=== PATIENT | male | born 1970 | race Two or more races ===

== ENCOUNTER 2024-06-23 22:26 | Inpatient (IN) | payer MEDICAID ==
[~2024-06-23] VITALS: Ht 167.6 cm; Wt 70.3 kg
[2024-06-23] MEDS ORDERED: VANCOMYCIN 1 GM /D5W 250 ML PB IV ONE (23:07)
[2024-06-23] MEDS ORDERED: ACETAMINOPHEN ES 500 MG TABLET ONE (23:07)
[2024-06-23] MEDS ORDERED: PIPERACI/TAZO 3.375GM/D5W 50ML PB IV ONE (23:07)
[2024-06-23] MEDS: ACETAMINOPHEN ES 500 MG TABLET PO ONE (23:21)
[2024-06-23] MEDS ORDERED: LORAZEPAM INJ 2 MG/ML VIAL ONE (23:22)
[2024-06-23] MEDS: PIPERACILLIN /TAZOBACTAM 3.375 G in IV D5W 50 ML IV ONE (23:24)
[2024-06-23] MEDS: IV NS 0.9% 1,000 ML BAG IV ONE (23:24)
[2024-06-23] MEDS: LORAZEPAM INJ 2 MG/ML VIAL IV ONE (23:30)
[2024-06-23 23:31] LABS: BASOPHILS # (AUTO) 0.1 K/uL (0.0-0.2); BASOPHILS % (AUTO) 0.5 % (0.0-2.0); EOSINOPHILS % (AUTO) 0.2 % (0.0-6.0); HEMATOCRIT 35 % (39-51); HEMOGLOBIN 11.9 g/dL (13.5-17.5); LYMPHOCYTES # (AUTO) 1.1 K/uL (0.8-4.8); LYMPHOCYTES % (AUTO) 10.8 % (20.0-44.0); MEAN CORPUSCULAR HEMOGLOBIN 28 PG (26.0-33.0); MEAN CORPUSCULAR HGB CONC 34 g/dl (31.0-36.0); MEAN CORPUSCULAR VOLUME 82 fL (80-96); MONOCYTES # (AUTO) 0.5 K/uL (0.1-1.30); MONOCYTES % (AUTO) 4.6 % (2.0-12.0); NEUTROPHILS # (AUTO) 8.5 K/uL (1.8-8.9); NEUTROPHILS % (AUTO) 83.9 % (43.0-81.0); PLATELET COUNT (AUTO) 238 K/uL (150-450); RED BLOOD CELL COUNT(AUTO) 4.31 MIL/uL (4.5-6.0); WHITE BLOOD COUNT (AUTO) 10.2 K/uL (4.3-11.0)
[2024-06-23 23:36] LABS: APPEARANCE,URINE CLEAR (CLEAR); BILIRUBIN,URINE NEGATIVE (NEGATIVE); BLOOD, URINE NEGATIVE Ery/uL (NEGATIVE); COLOR,URINE YELLOW (YELLOW); KETONES,URINE TRACE mg/dL (NEGATIVE); LEUKOCYTE ESTERASE ,URINE NEGATIVE (NEGATIVE); NITRITE, URINE NEGATIVE (NEGATIVE); PROTEIN,URINE TRACE mg/dl (NEGATIVE); UGLUCOSE NEGATIVE (NEGATIVE); UROBILINOGEN,URINE 0.2 EU/dL (0.2)
[2024-06-23] MEDS: VANCOMYCIN 1 GM in IV D5W 250 ML IV ONE (23:39)
[2024-06-23 23:43] LABS: INR 1.09 (0.91-1.10); PARTIAL THROMBOPLASTIN TIME 23.2 SEC (24.3-34.3); PROTHROMBIN TIME 11.5 SECS (9.2-11.1)
[2024-06-23 23:51] LABS: ADD URINE CULTURE NO; BACTERIA,URINE Few /HPF (None Seen); RBC,URINE 0-2 /HPF (0-2); WBC,URINE 0-2 /HPF (0-3)
[2024-06-23 23:52] LABS: SQUAMOUS EPITHELIAL CELL,UR Moderate /HPF (None Seen)
[2024-06-23 23:53] LABS: ALANINE AMINOTRANSFERASE 21 U/L (12-78); ALBUMIN 4.6 g/dL (3.4-5.0); ALKALINE PHOSPHATASE 84 U/L (46-116); ASPARTATE AMINOTRANSFERASE 18 U/L (15-37); BILIRUBIN,DIRECT 0.2 mg/dL (0.0-0.2); BILIRUBIN,TOTAL 0.6 mg/dL (0.2-1.0); CALCIUM, SERUM 9.6 mg/dL (8.5-10.1); CARBON DIOXIDE 23 mmol/L (21-32); CHLORIDE 97 mmol/L (98-107); CREATININE 1.2 mg/dL (0.6-1.3); GLUCOSE 104 mg/dL (74-106); POTASSIUM 4.7 mmol/L (3.5-5.1); SODIUM SERUM 138 mmol/L (136-145); TOTAL PROTEIN, SERUM 8.4 g/dL (6.4-8.2); UREA NITROGEN, BLOOD 15 mg/dL (7-18)
[2024-06-23 23:54] LABS: MUCUS,URINE Many /LPF (None Seen)
[2024-06-23 23:57] LABS: LACTIC ACID 5.1 mmol/L (0.4-2.0)
[2024-06-24] MEDS: ENOXAPARIN SODIUM 40 MG/0.4 ML DISP.SYRIN SQ SCH (01:30)
[2024-06-24] MEDS ORDERED: ONDANSETRON HCL/PF 4 MG/2 ML VIAL IVP PRN (01:30)
[2024-06-24] MEDS ORDERED: ZOLPIDEM TARTRATE 5 MG TABLET PO PRN (01:30)
[2024-06-24] MEDS ORDERED: MAGNESIUM HYDROXIDE 30 ML UDC PO PRN (01:30)
[2024-06-24] MEDS ORDERED: MAG HYDROX/AL HYDROX/SIMETH 30 ML UDC PO PRN (01:30)
[2024-06-24] MEDS ORDERED: ENOXAPARIN SODIUM 40 MG/0.4 ML DISP.SYRIN SQ ONE (02:43)
[2024-06-24] MEDS: IV NS 0.9% 1,000 ML IV PRN (05:26)
[2024-06-24] MEDS ORDERED: PIPERACI/TAZO 3.375GM/D5W 50ML PB IV ONE (05:39)
[2024-06-24] MEDS: PIPERACILLIN /TAZOBACTAM 3.375 G in IV D5W 50 ML IV SCH (05:42)
[2024-06-24 08:00] VITALS: BP 135/87; TEMP 98.6; O2SAT 97
[2024-06-24] MEDS: ASPIRIN 325 MG TABLET PO SCH (08:30)
[2024-06-24] MEDS: PANTOPRAZOLE 40 MG TABLET.DR PO SCH (08:30)
[2024-06-24] MEDS: Z GUARD REMEDY 4 OZ OINT TP PRN (08:31)
[2024-06-24] MEDS ORDERED: LEVE500T20 PO (08:34)
[2024-06-24] MEDS ORDERED: METO25TA6 PO (08:34)
[2024-06-24] MEDS: VANCOMYCIN 750 MG in IV D5W 250 ML IV ONE (09:27)
[2024-06-24] MEDS: PIPERACILLIN /TAZOBACTAM 3.375 G in IV D5W 100 ML IV SCH ×2 (09:30→17:24)
[2024-06-24 16:00] VITALS: BP 115/82; TEMP 99.5; O2SAT 100
[2024-06-24] MEDS: METOPROLOL TARTRATE 25 MG TABLET PO SCH (17:18)
[2024-06-24] MEDS: LEVETIRACETAM (250 MG) 250 MG TABLET PO SCH (17:18)
[2024-06-24] MEDS: ACETAMINOPHEN 325 MG TABLET PO PRN (17:19)
[2024-06-24 20:00] VITALS: BP 127/71; TEMP 98.6; O2SAT 100
[2024-06-24] MEDS: VANCOMYCIN 1 GM in IV D5W 250ml IV SCH (20:56)
[2024-06-25 07:30] LABS: BASOPHILS % (AUTO) 0.5 % (0.0-2.0); EOSINOPHILS # (AUTO) 0.1 K/uL (0.0-0.7); EOSINOPHILS % (AUTO) 2.6 % (0.0-6.0); HEMATOCRIT 37 % (39-51); HEMOGLOBIN 12.3 g/dL (13.5-17.5); LYMPHOCYTES # (AUTO) 1.2 K/uL (0.8-4.8); MEAN CORPUSCULAR HEMOGLOBIN 27 PG (26.0-33.0); MEAN CORPUSCULAR HGB CONC 33 g/dl (31.0-36.0); MEAN CORPUSCULAR VOLUME 81 fL (80-96); MONOCYTES # (AUTO) 0.5 K/uL (0.1-1.30); MONOCYTES % (AUTO) 9.8 % (2.0-12.0); NEUTROPHILS % (AUTO) 62.1 % (43.0-81.0); PLATELET COUNT (AUTO) 171 K/uL (150-450); RED BLOOD CELL COUNT(AUTO) 4.53 MIL/uL (4.5-6.0); RED CELL DISTRIBUTION WIDTH 17.8 % (11.5-15.0); WHITE BLOOD COUNT (AUTO) 4.9 K/uL (4.3-11.0)
[2024-06-25 08:00] VITALS: BP 138/97; TEMP 97.8; O2SAT 99
[2024-06-25 08:02] LABS: CREATININE 0.9 mg/dL (0.6-1.3); MAGNESIUM 1.9 mg/dL (1.8-2.4); PHOSPHORUS 3.7 mg/dL (2.5-4.9); POTASSIUM 3.7 mmol/L (3.5-5.1)
[2024-06-25 08:16] LABS: THYROID STIMULATING HORMONE 1.12 uIU/mL (0.358-3.74)
[2024-06-25] MEDS: LORAZEPAM 0.5 MG TABLET PO PRN (08:43)
[2024-06-25] MEDS: BACLOFEN (10 MG) 10 MG TABLET PO SCH (12:48)
[2024-06-25] MEDS ORDERED: QUETIAPINE FUMARATE 25 MG TABLET PO PRN (17:00)
[2024-06-25] MEDS: METHOCARBAMOL (500MG) 500 MG TABLET PO SCH (17:10)
[2024-06-25] MEDS: VANCOMYCIN HCL 1.25 GM in IV D5W 250 ML IV SCH (20:12)
[2024-06-25 21:14] VITALS: BP 128/97; TEMP 99
[2024-06-25 23:12] VITALS: BP 128/97; TEMP 99; O2SAT 99
[2024-06-26] MEDS: LORAZEPAM 1 MG TABLET PO PRN (07:35)
[2024-06-26 13:57] LABS: CALCIUM, SERUM 8.4 mg/dL (8.5-10.1); CREATININE 0.7 mg/dL (0.6-1.3); POTASSIUM 3.8 mmol/L (3.5-5.1)
[2024-06-26 14:02] LABS: BASOPHILS % (AUTO) 0.5 % (0.0-2.0); EOSINOPHILS # (AUTO) 0.1 K/uL (0.0-0.7); EOSINOPHILS % (AUTO) 1.5 % (0.0-6.0); HEMATOCRIT 34 % (39-51); HEMOGLOBIN 11.6 g/dL (13.5-17.5); LYMPHOCYTES # (AUTO) 1.3 K/uL (0.8-4.8); LYMPHOCYTES % (AUTO) 22.4 % (20.0-44.0); MEAN CORPUSCULAR HEMOGLOBIN 27 PG (26.0-33.0); MEAN CORPUSCULAR HGB CONC 34 g/dl (31.0-36.0); MEAN CORPUSCULAR VOLUME 81 fL (80-96); MONOCYTES # (AUTO) 0.6 K/uL (0.1-1.30); MONOCYTES % (AUTO) 9.9 % (2.0-12.0); NEUTROPHILS # (AUTO) 3.7 K/uL (1.8-8.9); NEUTROPHILS % (AUTO) 65.7 % (43.0-81.0); PLATELET COUNT (AUTO) 194 K/uL (150-450); RED BLOOD CELL COUNT(AUTO) 4.21 MIL/uL (4.5-6.0); RED CELL DISTRIBUTION WIDTH 17.8 % (11.5-15.0); WHITE BLOOD COUNT (AUTO) 5.6 K/uL (4.3-11.0)
[2024-06-26 14:16] LABS: THYROID STIMULATING HORMONE 0.93 uIU/mL (0.358-3.74)
[2024-06-26] MEDS ORDERED: IV NS 0.9% 250 ML IV ONE (14:48)
[2024-06-26] MEDS ORDERED: CT SWABBABLE VALVE TRANS SET 1 EA INFUS.SET MC ONE (14:48)
[2024-06-26] MEDS ORDERED: IOHEXOL-350 100 ML VIAL IV ONE (14:48)
[2024-06-26 20:00] VITALS: BP 112/75; TEMP 98.4; O2SAT 100
[2024-06-27 06:28] LABS: CALCIUM, SERUM 9.1 mg/dL (8.5-10.1); CREATININE 0.8 mg/dL (0.6-1.3); POTASSIUM 3.7 mmol/L (3.5-5.1)
[2024-06-27 08:00] VITALS: BP 136/67; TEMP 98.2; O2SAT 98
[2024-06-27] MEDS ORDERED: VANCOMYCIN 1 GM in IV D5W 250 ML IV SCH (08:00)
[2024-06-27 08:07] LABS: FOLIC ACID 10.6 ng/mL (>3.0)
[2024-06-27 16:00] VITALS: BP 120/56; TEMP 98.5; O2SAT 97
[2024-06-27] MEDS: AMMONIUM LACTATE 227 GM BOTTLE TP SCH (18:41)
[2024-06-27 20:00] VITALS: BP 136/82; TEMP 98.2; O2SAT 100
[2024-06-27 20:15] VITALS: BP 136/82; TEMP 98.2; O2SAT 100
[2024-06-28 07:53] LABS: CALCIUM, SERUM 9.3 mg/dL (8.5-10.1); CREATININE 0.8 mg/dL (0.6-1.3); POTASSIUM 3.9 mmol/L (3.5-5.1)
[2024-06-28 08:00] VITALS: BP 115/69; TEMP 97.9; O2SAT 98
[2024-06-28] MEDS: POLYVINYL ALCOHOL 15 ML BOTTLE EACHEYE PRN (18:14)
[2024-06-28 20:00] VITALS: BP 119/77; TEMP 98; TEMP 98.1; O2SAT 98
[2024-06-29 07:26] LABS: CALCIUM, SERUM 8.9 mg/dL (8.5-10.1); CREATININE 0.7 mg/dL (0.6-1.3); POTASSIUM 3.5 mmol/L (3.5-5.1)
[2024-06-29 12:02] LABS: CHOLESTEROL 132 mg/dL (<200); HDL CHOLESTEROL 42 mg/dL (40-60); LDL 74 mg/dL (0-99); TRIGLYCERIDES 88 mg/dL (30-150)
[2024-06-29 20:00] VITALS: BP 108/70; TEMP 98.4; O2SAT 98
[2024-06-30 00:10] LABS: VITAMIN B1 THIAMINE,WB 115.9 nmol/L (66.5-200.0)
[2024-06-30 07:14] LABS: CALCIUM, SERUM 9.3 mg/dL (8.5-10.1); CREATININE 0.8 mg/dL (0.6-1.3); POTASSIUM 3.9 mmol/L (3.5-5.1)
[2024-06-30 08:00] VITALS: BP 132/82; TEMP 97.5; O2SAT 100
[2024-06-30 20:00] VITALS: BP 101/68; TEMP 98.1; O2SAT 99
[2024-07-01 07:00] VITALS: BP 112/66; TEMP 98.1; O2SAT 100
[2024-07-01 16:00] VITALS: BP 106/68; TEMP 98.4; O2SAT 98
[2024-07-01 20:00] VITALS: BP 103/71; TEMP 98.1; O2SAT 98
[2024-07-02 07:00] VITALS: BP 109/68; TEMP 97.7; O2SAT 98
[2024-07-02 16:00] VITALS: BP 95/61; TEMP 98.4; O2SAT 98
[2024-07-02 20:00] VITALS: BP 103/61; TEMP 98.5; O2SAT 97
[2024-07-03 00:54] VITALS: BP 103/61; TEMP 98
[2024-07-03 08:33] VITALS: BP 117/73
== END 2024-07-03 15:45 | disposition home or self-care (01) | DRG 720 ==
LOC: ER 22:37 → TELE 06-24 02:33 → MED 06-24 17:06 → UNDODISIN 06-30 16:05
PROVIDERS: ADMIT Nurse Practitioner Family; ATTEND Nurse Practitioner Acute Care
DX: A41.9 Sepsis, unspecified organism (principal); J69.0 Pneumonitis due to inhalation of food and vomit; G93.49 Other encephalopathy; E87.20 Acidosis, unspecified; D63.8 Anemia in other chronic diseases classified elsewhere; L97.529 Non-pressure chronic ulcer of other part of left foot with unspecified severity; M85.80 Other specified disorders of bone density and structure, unspecified site; Z59.00 Homelessness unspecified; G40.909 Epilepsy, unspecified, not intractable, without status epilepticus; F01.50 Vascular dementia, unspecified severity, without behavioral disturbance, psychotic disturbance, mood disturbance, and anxiety; Z79.899 Other long term (current) drug therapy; Z91.81 History of falling; Z86.73 Personal history of transient ischemic attack (TIA), and cerebral infarction without residual deficits; I10 Essential (primary) hypertension; H11.001 Unspecified pterygium of right eye; G93.89 Other specified disorders of brain; L84 Corns and callosities; F39 Unspecified mood [affective] disorder; I65.21 Occlusion and stenosis of right carotid artery; I70.0 Atherosclerosis of aorta
CPT/HCPCS: 36415; 70450-TC; 70496-TC; 70498-TC; 71045-TC; 73030-TC; 73590-TC; 80048-TC; 80061-TC; 80076-TC; 80202-TC; 81001; 82607-TC; 83605-TC; 83735-TC; 83921; 84100-TC; 84425; 84443-TC; 84484-TC; 85025-TC; 85730-TC; 87040-TC; 87081-TC; 87086-TC; 93971-TC; 97110-TC; 97112-TC; 97116-TC; 97530-TC; 97535-TC; A4223; G0378; J1650; J2060; J2543; J3370; J3371; J7030; J7050; J7060; Q9967